=== PATIENT | female | born 1975 | race Caucasian/White ===

== ENCOUNTER → 2017-10-22 | Outpatient (CLI) | payer OTHER ==
--- NOTE | 2017-10-26 09:46 | RADIOLOGY REPORT PS360 ---
DIG MAMM-SCREEN NONA W/CAD CAD Screening COMPARISON: Digital mammograms 08/06/2013 INDICATION: There is no personal or family history of breast cancer. There is been previous breast reduction surgery TECHNIQUE: Standard CC and MLO images were obtained. R2 CAD reviewed. FINDINGS: Scattered fibroglandular densities are seen in both breasts. There is very little if any post surgical scarring in either breast. There are scattered benign-appearing calcifications in each breast more numerous right breast than left as noted previously. There are no suspicious microcalcifications. There are fatty replaced nodes in both axilla. IMPRESSION: Fibrofatty parenchyma with no suspicious lesion seen recommend yearly follow-up BI-RADS CATEGORY: 2_Benign RECOMMENDED FOLLOWUP: 12M 12 MONTH FOLLOW-UP (A letter has been sent to the patient regarding results of the study.)
== END ==
LOC: RAD 16:44
DX: Z12.31 Encounter for screening mammogram for malignant neoplasm of breast (principal)
CPT/HCPCS: G0202